=== PATIENT | female | born 1970 | race Caucasian/White ===

== ENCOUNTER 2025-08-21 12:52 | Outpatient (CLI) | payer OTHER, SELFPAY ==
--- NOTE | ~2025-08-21 | CT_ITS ---
EXAMINATION: CT sinus wo con DATE: 08/21/2025 13:17 INDICATION: Chronic sinusitis TECHNIQUE: Computed tomography (CT) of the paranasal sinuses was performed without intravenous contrast. The dose-length product was 273.81 mGy-cm. Automated exposure control and iterative reconstruction technique were employed. COMPARISON: None FINDINGS: There is minimal mucosal thickening of the left maxillary antrum. Leftward nasal septal deviation. No mucoperiosteal reaction. Ostiomeatal units are patent. Mastoids are pneumatized. No depressed skull fractures. IMPRESSION: 1. Mild left maxillary sinus disease. Reviewed, dictated and finalized at location O. HELPER
== END 2025-08-21 12:53 | disposition home or self-care (01) ==
LOC: MICIMG 12:53
PROVIDERS: PCP Otolaryngology; Visit Provider Otolaryngology
DX: J32.0 Chronic maxillary sinusitis (principal)
CPT/HCPCS: 70486